=== PATIENT | male | born 1980 | race Two or more races ===

== ENCOUNTER 2016-11-05 18:25 | Emergency (ER) | payer SELFPAY ==
[~2016-11-05] VITALS: Ht 177.8 cm; Wt 113.4 kg
[2016-11-05 18:39] VITALS: BP 156/95
[2016-11-05 18:40] VITALS: BP 1/1
--- NOTE | 2016-11-05 18:40 | Emergency Room Report ---
History of Present Illness General Chief Complaint: Overdose Source: EMS Present Illness HPI The patient presents after smoking methamphetamine for several days presents now for several days. He has not been eating. He also feels dehydrated and thirsty. He is complaining of chest pain. The chest pain is sharp and also pressure. It is fairly constant but also somewhat pleuritic. He is very well as to how significant the pain is at this time. Denies any cardiac problems in the past. Denies any nausea vomiting or diarrhea. No rashes. Denies suicidal ideation. Patient denied pain to RN. Patient seen in our ED 2007 (prebook) and 2012 (head and neck trauma). Allergies: Coded Allergies: No Known Allergies (Unverified , 11/05/16) Patient History Past Medical History: see triage record, old chart reviewed Social History: Reports: drug use Social History Narrative from home Reviewed Nursing Documentation: PMH: Agreed, PSxH: Agreed Nursing Documentation-PM Past Medical History: No History, Except For Hx Diabetes: Yes Review of Systems All Other Systems: negative except mentioned in HPI Physical Exam Vital Signs Date Time Temp Pulse Resp B/P Pulse Ox O2 Delivery O2 Flow Rate FiO2 11/05/16 18:22 98.1 77 18 156/95 98 Room Air Sp02 EP Interpretation: reviewed, normal General Appearance: well appearing, no apparent distress, GCS 15 Head: normocephalic Eyes: bilateral eye Scleral Injection ENT: dry mucus membranes Neck: supple Respiratory: lungs clear, normal breath sounds Cardiovascular #1: regular rate, rhythm Cardiovascular #2: 2+ radial (R) Gastrointestinal: normal inspection, normal bowel sounds, non tender, no mass, non-distended Musculoskeletal: back normal, gait/station normal, normal range of motion Neurologic: alert, oriented x3, motor strength/tone normal, DTRs symmetric, sensory intact Psychiatric: no suicidal/homicidal ideation, depressed affect Skin: warm/dry, other - sallo Medical Decision Making Diagnostic Impression: Primary Impression: Chest pain Additional Impressions: Methamphetamine abuse AMA ER Course Presents with chest pain and first after several days of methamphetamine abuse. Differential includes acute microinfarction, rhabdomyolysis and renal failure and dehydration. Patient is not suicidal at this time. Evaluation will be undertaken with labs, EKG, chest x-ray. Patient was treated with IV hydration. Patient refusing care. Advised of risks of and renal failure. Last Vital Signs Date Time Temp Pulse Resp B/P Pulse Ox O2 Delivery O2 Flow Rate FiO2 11/05/16 18:22 98.1 77 18 156/95 98 Room Air Status: other Disposition: AGAINST MEDICAL ADVICE Condition: Unknown Drake Magaña M.D. Nov 05, 2016 18:40
== END 2016-11-05 18:45 | disposition left against medical advice (07) ==
LOC: EDBD 18:25 → EMR 18:33
DX: R07.9 Chest pain, unspecified (principal); F15.10 Other stimulant abuse, uncomplicated; E11.9 Type 2 diabetes mellitus without complications
CPT/HCPCS: 99283